=== PATIENT | female | born 1995 | race Two or more races ===

== ENCOUNTER 2019-01-20 03:08 | Emergency (ER) | payer OTHER ==
[~2019-01-20] VITALS: Ht 152.4 cm; Wt 77.1 kg
== END 2019-01-20 05:45 | disposition home or self-care (01) ==
LOC: ER 03:08
DX: E16.1 Other hypoglycemia (principal)

== ENCOUNTER 2019-02-12 19:00 | Emergency (ER) | payer OTHER ==
[~2019-02-12] VITALS: Ht 152.4 cm; Wt 81.6 kg
[2019-02-12] MEDS ORDERED: PRENATAL + DHA1 EAC1 (19:44)
== END 2019-02-12 23:59 | disposition home or self-care (01) ==
LOC: ER 19:00
DX: O26.891 Other specified pregnancy related conditions, first trimester (principal); K59.09 Other constipation; Z34.01 Encounter for supervision of normal first pregnancy, first trimester